=== PATIENT | female | born 1975 | race American Indian/Alaskan Native ===

== ENCOUNTER 2018-07-20 12:00 | Emergency (ER) | payer SELFPAY ==
[2018-07-20 12:10] VITALS: BP 125/81
[2018-07-20] MEDS ORDERED: TORADOL IM ONE (14:54)
[2018-07-20] MEDS ORDERED: DELTASONE PO ONE (14:54)
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
== END 2018-07-20 15:41 | disposition home or self-care (01) ==
LOC: ED 12:00
DX: S39.012A Strain of muscle, fascia and tendon of lower back, initial encounter (principal); X58.XXXA Exposure to other specified factors, initial encounter; Y93.84 Activity, sleeping; Y99.8 Other external cause status; Y92.019 Unspecified place in single-family (private) house as the place of occurrence of the external cause
CPT/HCPCS: 96372; 99282; J1885; J7512